=== PATIENT | female | born 1965 | race Hispanic/Latino ===

== ENCOUNTER 2023-10-06 15:16 | Emergency (ER) | payer OTHER ==
[~2023-10-06] VITALS: Ht 157.5 cm; Wt 90.7 kg
[2023-10-06 15:20] VITALS: O2SAT 99
[2023-10-06 15:21] VITALS: BP 149/91; PULSE 81; RESP 16
[2023-10-06] MEDS ORDERED: ACETAMINOPHEN 500 MG TABLET PO ONE (17:30)
[2023-10-06] MEDS ORDERED: ACETAMINOPHEN 500 MG TABLET ONE (17:54)
[2023-10-06] MEDS ORDERED: ACET-2247 PO (19:46)
== END 2023-10-06 20:10 | disposition home or self-care (01) ==
LOC: EDH 15:16
DX: S09.8XXA Other specified injuries of head, initial encounter (principal); W01.0XXA Fall on same level from slipping, tripping and stumbling without subsequent striking against object, initial encounter; Y93.89 Activity, other specified; Y92.89 Other specified places as the place of occurrence of the external cause; Y99.8 Other external cause status
CPT/HCPCS: 70450; 72125